=== PATIENT | male | born 1975 | race Caucasian/White ===

== ENCOUNTER → 2017-01-24 | Outpatient (CLI) | payer BC ==
--- NOTE | 2017-01-24 15:20 | XR ---
EXAMINATION TYPE: XR chest 2V DATE OF EXAM: 01/24/2017 2:46 PM COMPARISON: 11/03/2013 INDICATION: Physical exam annual TECHNIQUE: Frontal and lateral views of the chest are obtained. FINDINGS: The heart size is normal. The pulmonary vasculature is normal. The lungs are clear. IMPRESSION: 1. No acute pulmonary process.
== END | disposition home or self-care (01) ==
LOC: RADXRMAIN 14:33
PROVIDERS: ATTEND Family Medicine
DX: Z00.00 Encounter for general adult medical examination without abnormal findings (principal)
CPT/HCPCS: 71020

== ENCOUNTER → 2017-03-28 | Outpatient (CLI) | payer BC ==
--- NOTE | 2017-03-28 13:36 | CONS ---
DATE OF CONSULTATION: 03/28/2017 A 41-year-old gentleman who has [facility] for obstructive sleep-apnea hypopnea syndrome. HISTORY OF PRESENT ILLNESS/SLEEP-WAKE EVALUATION: Patient had been diagnosed with sleep apnea about 4 years ago. At that time was started on treatment with CPAP and patient continued to use his CPAP at the present time. When he started to use CPAP he felt better but presently he again developed sleepiness and awakenings from sleep. SLEEP SCHEDULE: His sleep schedule from around 10 p.m. to 5:30 a.m. when working days and from about 11 p.m. to 7 to 8 a.m. on weekend. FALLING ASLEEP: No problem with falling asleep at all. No TV in bedroom. DURING SLEEP: He usually sleeps on back and side position. Wake up from sleep 2 times. DURING THE DAY/WAKE STATE: In the morning he feels tired and sleepy. [place]- Sleepiness scale significantly increased to 14. He even feels sleepiness while driving. He has difficulties to pay attention probably with memory, concentration and depression and anxiety. Positive history of hypnagogical hallucinations. No history of sleep paralysis. No history of cataplexy. PAST MEDICAL HISTORY: Positive for migraine, neck and back problems. Restriction of nasal breathing. PAST SURGICAL HISTORY: Surgery for fracture of left clavicle in 1997. MEDICATIONS: Excedrin. SOCIAL HISTORY: Positive for smoking about 1 pack a day on and off for a total of 25 years. Alcohol consumption presently none. FAMILY HISTORY: Arthritis, lung problems, snoring, cancer, liver problems, mental illness. DURING PHYSICAL EXAM: GENERAL: gentleman without distress. VITAL SIGNS: BP 135/78, HR 74, RR16, height 5, 9, weight 232, BMI 34, neck 17 inches in circumference, temp 98.3, oxygen saturation 97% OROPHARYNX: Moderately low position of soft palpate with short distance between soft palate and posterior pharyngeal wall. Nasal septum deviation with stricture of nasal breathing. Mandible deviated to the left. ABDOMEN: Obese. NECK: Supple, No JVD. Thyroid is not palpable. LUNGS: Clear to percussion and to auscultation. Good air exchange. No wheezing or rhonchi. HEART: S1, s2 regular. No murmurs, gallops or rubs. EXTREMITIES: No clubbing or cyanosis. CHEMICAL MANAGER: Awake, alert, and oriented x3. Cranial nerves 2 to 7 intact. There is no fasciculation or atrophy noted. No focal deficits observed. IMPRESSION: 1. History of obstructive sleep apnea-hypopnea syndrome. Patient is on treatment with CPAP, presently developed significantly daytime sleepiness, [place] sleepiness increased to 14. Patient feels sleepy in situation including driving. Big neck, awakenings from sleep. 2. Obesity, body mass index 34. 3. Migraines. 4. Neck problem. 5. Back problem. 6. Status post surgical fracture of left clavicular fracture 1997. 7. Mandible deviated to the left. 8. Nasal septum deviation revealed restriction of nasal breathing. 9. Positive history of hypnagogical hallucinations. Differential diagnosis may include hypersomnia. PLAN: 1. CPAP titration for reevaluation of effective CPAP pressure at the present time. 2. Loosing weight. 3. Sleep hygiene with regular time in bed for at least 8 hours. 4. No driving if feeling any sleepiness. 5. Smoking cessation program. Thank you very much for allowing me to participate in the management of your patient. Sincerely, Channing Diaz MD, PhD, FAASM. Diplomat of [place] [employer], Sleep Medicine Board by [place] [employer] Machine Operator of [facility] [place] [facility]
== END | disposition home or self-care (01) ==
LOC: SLEEP 10:38
PROVIDERS: ATTEND Internal Medicine
DX: E66.9 Obesity, unspecified (principal); G43.909 Migraine, unspecified, not intractable, without status migrainosus; J34.2 Deviated nasal septum; Z68.34 Body mass index [BMI] 34.0-34.9, adult
CPT/HCPCS: 99211

== ENCOUNTER → 2018-06-06 | Outpatient (CLI) | payer BC ==
[2018-06-06 10:49] LABS: HCT 45.8 % (39.0-53.0); HGB 14.8 gm/dL (13.0-17.5); MCH 28.8 pg (25.0-35.0); MCHC 32.3 g/dL (31.0-37.0); MCV 89.1 fL (80.0-100.0); Mean Platelet Volume 6.5; Platelet Count 221 k/uL (150-450); RBC 5.14 m/uL (4.30-5.90); WBC 5.4 k/uL (3.8-10.6)
[2018-06-06 12:02] LABS: ALT 52 U/L (21-72); AST 39 U/L (17-59); Alkaline Phosphatase 47 U/L (38-126); Anion Gap 8 mmol/L; Blood Urea Nitrogen 17 mg/dL (9-20); Calcium 9.3 mg/dL (8.4-10.2); Carbon Dioxide 26 mmol/L (22-30); Chloride 106 mmol/L (98-107); Cholesterol 160 mg/dL (<200); Glucose 85 mg/dL (74-99); HDL Cholesterol 44 mg/dL (40-60); LDL Cholesterol,Calculated 98 mg/dL (0-99); Potassium 4.4 mmol/L (3.5-5.1); Sodium 140 mmol/L (137-145); Total Bilirubin 1.1 mg/dL (0.2-1.3); Total Protein 7.2 g/dL (6.3-8.2); Triglycerides 88 mg/dL (<150)
[2018-06-06 12:22] LABS: Prostate Specific Antigen 0.78 ng/mL (0.00-4.00)
== END ==
LOC: LABWHC1 09:53
PROVIDERS: ATTEND Family Medicine
DX: Z00.00 Encounter for general adult medical examination without abnormal findings (principal); E29.1 Testicular hypofunction; G47.31 Primary central sleep apnea
CPT/HCPCS: 36415; 80053; 80061; 82728; 84146; 84153; 84402; 84443; 84481; 85027

== ENCOUNTER → 2019-10-31 | Outpatient (CLI) | payer BC ==
--- NOTE | 2019-10-31 08:06 | CT ---
EXAMINATION TYPE: CT angio chest DATE OF EXAM: 10/31/2019 7:42 AM COMPARISON: None. HISTORY: ascending aorta dilation CT DLP: 944 mGycm Automated exposure control for dose reduction was used. CONTRAST: CTA scan of the thorax is performed without and with IV Contrast, patient injected with 100 mL of Iso rhett 370, pulmonary embolism protocol. . FINDINGS: There is minimal dependent atelectasis at the lung bases. Lungs are otherwise clear. No significant axillary, mediastinal or hilar adenopathy. There is no evidence of pulmonary embolus. The aortic root is minimally dilated measuring 3.8 cm. The proximal arch is minimally ectatic measuri ng 3 cm. The remainder of the aorta is normal in caliber. There is no pleural or pericardial fluid. The heart is not enlarged. Visualized upper abdominal structures are normal. There is minimal degenerative change within the spine. IMPRESSION: MINIMAL DILATATION OF THE AORTIC ROOT AND PROXIMAL ARCH.
== END | disposition home or self-care (01) ==
LOC: RADCTMAIN 07:06
PROVIDERS: ATTEND Internal Medicine Cardiovascular Disease
DX: I77.810 Thoracic aortic ectasia (principal)
CPT/HCPCS: 71275; Q9967

== ENCOUNTER → 2022-01-17 | Outpatient (CLI) | payer BC ==
--- NOTE | 2022-02-02 18:37 | P.CEMON ---
14 Day Event monitor note: Patient wore an event monitor for 14 days from 01/17/2022 until 01/30/2022. Findings: Patient's baseline heart rate was normal sinus rhythm. There were no signficant atrial fibrillation, atrial flutter, or ventricular tachycardia episodes. There were no significant pauses greater than 2 seconds. There were a total of 141 automatically captured events and patient activated events. Patient activated events of symptoms of shortness breath, chest pressure, tightness and not specified corresponded sometimes with sinus rhythm and occasionally with PACs. There were additional rare PACs. There was occasional sinus tachycardia. There is no atrial fibrillation. Conclusions: 14 day event monitor with sinus rhythm and frequent PACs and PVCs. Patient's activated events corresponding with sinus rhythm and occasionally with PACs and PVCs. No atrial fibrillation noted, no ventricular tachycardia, no positive is greater than 2 seconds.
== END | disposition home or self-care (01) ==
LOC: RADECHMAIN 08:11
PROVIDERS: ATTEND Family Medicine
DX: I49.3 Ventricular premature depolarization (principal); I49.1 Atrial premature depolarization
CPT/HCPCS: 93270

== ENCOUNTER → 2022-06-29 | Outpatient (CLI) | payer OTHER ==
--- NOTE | 2022-06-29 16:26 | XR ---
EXAMINATION TYPE: XR lumbar spine 2 or 3V DATE OF EXAM: 06/29/2022 4:22 PM INDICATION: Patient age:Male; 46 years old; Reason for study: S73.102A, R20.9; slipped, fall pain. COMPARISON: TECHNIQUE: Frontal, lateral and coned in L5-S1 lateral views of the spine. FINDINGS: No evidence of any acute osseous pathology. No evidence of loss of vertebral body height i s seen. There is normal alignment of the lumbar vertebral bodies. Mild scattered disc space narrowing . Multilevel marginal osteophyte formation throughout the visualized spine. There is facet joint arth ropathy throughout the spine. Scattered at least mild neural foraminal stenosis. IMPRESSION: 1. No acute fracture. 2. Mild multilevel disc degeneration.
--- NOTE | 2022-06-29 16:27 | XR ---
EXAMINATION TYPE: XR Hip Complete LT DATE OF EXAM: 06/29/2022 4:22 PM INDICATION: Patient age:Male; 46 years old; Reason for study: S73.102A, R20.9; . COMPARISON: None. TECHNIQUE: The left hip was examined in the frontal and lateral projections FINDINGS: No evidence for acute process, joint dislocation or significant soft tissue swelling. IMPRESSION: No acute process.
--- NOTE | 2022-06-29 16:27 | XR ---
EXAMINATION TYPE: XR pelvis AP view DATE OF EXAM: 06/29/2022 4:22 PM INDICATION: Patient age:Male; 46 years old; Reason for study: S73.102A, R20.9; COMPARISON: Same day left hip radiograph. TECHNIQUE: The pelvis was examined in a single projection. FINDINGS: There is no evidence of fracture or dislocation. There is no soft tissue abnormality. No a bnormal calcifications are present. Multilevel degenerative changes of the lower spine. IMPRESSION: No acute osseous pathology.
== END | disposition home or self-care (01) ==
LOC: RADXRMAIN 15:55
PROVIDERS: ATTEND Emergency Medicine
DX: S73.102A Unspecified sprain of left hip, initial encounter (principal); M51.36 Other intervertebral disc degeneration, lumbar region; R20.9 Unspecified disturbances of skin sensation
CPT/HCPCS: 72100; 72170; 73502

== ENCOUNTER 2022-10-09 02:06 | Emergency (ER) | payer BC ==
[2022-10-09 03:50] LABS: Basophils # (A) 0.1 k/uL (0-0.2); Basophils % (A) 1 %; Eosinophils # (A) 0.2 k/uL (0-0.7); Eosinophils % (A) 2 %; HCT 51.4 % (39.0-53.0); HGB 17.5 gm/dL (13.0-17.5); Lymphocytes # (A) 0.8 k/uL (1.0-4.8); Lymphocytes % (A) 6 %; MCH 31.6 pg (25.0-35.0); MCV 92.8 fL (80.0-100.0); Mean Platelet Volume 6.9; Monocytes # (A) 0.6 k/uL (0-1.0); Monocytes % (A) 5 %; Neutrophils # (A) 10.8 k/uL (1.3-7.7); Neutrophils % (A) 86 %; Platelet Count 189 k/uL (150-450); RBC 5.53 m/uL (4.30-5.90); RDW 12.7 % (11.5-15.5); WBC 12.6 k/uL (3.8-10.6)
--- NOTE | 2022-10-09 03:53 | XR ---
EXAMINATION TYPE: XR KUB DATE OF EXAM: 10/09/2022 COMPARISON: NONE HISTORY: Abdominal pain TECHNIQUE: 2 views upright FINDINGS: There is no sign of intestinal obstruction or pneumoperitoneum. Fecal pattern is normal. No evidence of a mass. No pathologic calcification over the kidneys. Bony structures are intact. IMPRESSION: Nonacute abdomen.
[2022-10-09 04:22] LABS: ALT 124 U/L (4-49); AST 57 U/L (17-59); African American GFR (CKD) >90 (>60 ml/min/1.73 sqM); Albumin 4.2 g/dL (3.5-5.0); Alkaline Phosphatase 65 U/L (38-126); Amylase 166 U/L (30-110); Anion Gap 13 mmol/L; Blood Urea Nitrogen 21 mg/dL (9-20); Calcium 8.3 mg/dL (8.4-10.2); Carbon Dioxide 27 mmol/L (22-30); Chloride 102 mmol/L (98-107); Glucose 121 mg/dL (74-99); Lipase 777 U/L (23-300); Non-African American GFR(CKD) 79 (>60 ml/min/1.73 sqM); Potassium 3.7 mmol/L (3.5-5.1); Sodium 142 mmol/L (137-145); Total Bilirubin 0.8 mg/dL (0.2-1.3); Total Protein 7.5 g/dL (6.3-8.2)
[2022-10-09] MEDS ORDERED: ONDANSETRON 4 MG/2 ML VIAL IVP STA (04:40)
--- NOTE | 2022-10-09 04:40 | ED ---
Abdominal Pain HPI - General Chief Complaint: Abdominal Pain Stated Complaint: abd pain chills nausea Time Seen by Provider: 10/09/22 03:33 Source: patient Mode of arrival: ambulatory - Related Data Allergies Allergy/AdvReac Type Severity Reaction Status Date / Time amoxicillin Allergy Vomiting Verified 10/09/22 02:18 Review of Systems ROS Statement: Those systems with pertinent positive or pertinent negative responses have been documented in the HPI. ROS Other: All systems not noted in ROS Statement are negative. Past Medical History Past Medical History: No Reported History History of Any Multi-Drug Resistant Organisms: None Reported Past Surgical History: No Surgical Hx Reported, Orthopedic Surgery Past Psychological History: No Psychological Hx Reported Past Alcohol Use History: Daily Past Drug Use History: None Reported Course Vital Signs 10/09/22 10/09/22 10/09/22 02:14 03:40 06:00 Temperature 98.7 F 98.4 F 98.8 F Pulse Rate 115 H 96 110 H Respiratory 18 18 16 Rate Blood Pressure 116/87 141/82 131/94 O2 Sat by Pulse 95 95 95 Oximetry Medical Decision Making - Lab Data Result diagrams: 10/09/22 03:39 10/09/22 03:39 Lab Results 10/09/22 10/09/22 Range/Units 03:39 03:39 WBC 12.6 H (3.8-10.6) k/uL RBC 5.53 (4.30-5.90) m/uL Hgb 17.5 (13.0-17.5) gm/dL Hct 51.4 (39.0-53.0) % MCV 92.8 (80.0-100.0) fL MCH 31.6 (25.0-35.0) pg MCHC 34.0 (31.0-37.0) g/dL RDW 12.7 (11.5-15.5) % Plt Count 189 (150-450) k/uL MPV 6.9 Neutrophils % 86 % Lymphocytes % 6 % Monocytes % 5 % Eosinophils % 2 % Basophils % 1 % Neutrophils # 10.8 H (1.3-7.7) k/uL Lymphocytes # 0.8 L (1.0-4.8) k/uL Monocytes # 0.6 (0-1.0) k/uL Eosinophils # 0.2 (0-0.7) k/uL Basophils # 0.1 (0-0.2) k/uL Sodium 142 (137-145) mmol/L Potassium 3.7 (3.5-5.1) mmol/L Chloride 102 (98-107) mmol/L Carbon Dioxide 27 (22-30) mmol/L Anion Gap 13 mmol/L BUN 21 H (9-20) mg/dL Creatinine 1.10 (0.66-1.25) mg/dL Est GFR (CKD-EPI)AfAm >90 (>60 ml/min/1.73 sqM) Est GFR (CKD-EPI)NonAf 79 (>60 ml/min/1.73 sqM) Glucose 121 H (74-99) mg/dL Calcium 8.3 L (8.4-10.2) mg/dL Total Bilirubin 0.8 (0.2-1.3) mg/dL AST 57 (17-59) U/L ALT 124 H (4-49) U/L Alkaline Phosphatase 65 (38-126) U/L Total Protein 7.5 (6.3-8.2) g/dL Albumin 4.2 (3.5-5.0) g/dL Amylase 166 H (30-110) U/L Lipase 777 H (23-300) U/L Disposition Clinical Impression: Abdominal pain, Pancreatitis Disposition: HOME SELF-CARE Condition: Good Instructions (If sedation given, give patient instructions): Abdominal Pain (ED) Is patient prescribed a controlled substance at d/c from ED?: No Referrals: Levi Elder DO [Primary Care Provider] - 1-2 days Time of Disposition: 06:50
[2022-10-09 06:12] VITALS: BP 131/94; PULSE 110; RESP 16; TEMP 98.8
[2022-10-09] MEDS ORDERED: ACET/COD 300 MG/30 MG STARTER PACK 6 TAB BTL PO STA (06:46)
[2022-10-09] MEDS ORDERED: traMADol 50 MG STARTER PACK 3 TAB BTL PO STA (06:46)
[2022-10-09] MEDS ORDERED: ONDANSETRON 4 MG ODT STARTER PACK 2 TAB BTL PO STA (06:46)
== END 2022-10-09 07:08 | disposition home or self-care (01) ==
LOC: EC 02:06
DX: K85.90 Acute pancreatitis without necrosis or infection, unspecified (principal); Z88.0 Allergy status to penicillin
CPT/HCPCS: 36415; 93005; 80053; 82150; 83690; 85025; 74018; 99284; 96374; J2405; S0119

== ENCOUNTER → 2025-03-13 | Outpatient (CLI) | payer BC ==
[2025-03-14 01:13] LABS: ALT 36 U/L (10-49); AST 27 U/L (14-35); Albumin 4.3 g/dL (3.8-4.9); Albumin/Globulin Ratio 1.59 Ratio (1.60-3.17); Alkaline Phosphatase 56 U/L (41-126); Anion Gap 12.60 mmol/L (4.00-12.00); BUN/Creat Ratio 17.10 Ratio (12.00-20.00); Blood Urea Nitrogen 17.1 mg/dL (9.0-27.0); Calcium 9.5 mg/dL (8.7-10.3); Carbon Dioxide 25.4 mmol/L (21.6-31.8); Chloride 103 mmol/L (96-109); Cholesterol 205.00 mg/dL (0.00-200.00); Globulin 2.7 g/dL (1.6-3.3); Glucose 87 mg/dL (70-110); HDL Cholesterol 51.00 mg/dL (40.00-60.00); LDL Cholesterol,Calculated 124.6 mg/dL (0.0-131.0); Potassium 4.2 mmol/L (3.5-5.5); Sodium 141 mmol/L (135-145); T4, Free (Free Thyroxine) 1.11 ng/dL (0.80-1.80); Total Protein 7.0 g/dL (6.2-8.2); Triglycerides 147.00 mg/dL (0.00-149.00); VLDL Calculation 29.40 mg/dL (5.00-40.00)
[2025-03-14 09:14] LABS: Basophils # (A) 0.08 X 10*3/uL (0.00-0.10); Basophils % (A) 1.2 %; Eosinophils # (A) 0.34 X 10*3/uL (0.04-0.35); Eosinophils % (A) 5.2 %; HCT 45.6 % (39.6-50.0); HGB 15.2 g/dL (13.0-17.0); Immature Grans, Automated 0.30 %; Lymphocytes # (A) 1.76 X 10*3/uL (0.90-5.00); Lymphocytes % (A) 26.7 %; MCH 30.3 pg (27.0-32.0); MCHC 33.3 g/dL (32.0-37.0); MCV 91.0 FL (80.0-97.0); Monocytes # (A) 0.87 X 10*3/uL (0.20-1.00); Monocytes % (A) 13.2 %; NRBC Per 100 WBC 0 X 10*3/uL (0.00-0.01); Neutrophils # (A) 3.52 X 10*3/uL (1.80-7.70); Neutrophils % (A) 53.4 %; Platelet Count 208 X 10*3/uL (140-440); RBC 5.01 X 10*6/uL (4.40-5.60); RDW 12.3 % (11.5-14.5); WBC 6.59 X 10*3/uL (4.50-10.00)
== END | disposition home or self-care (01) ==
LOC: LABWHC1 09:53
PROVIDERS: ATTEND Student in an Organized Health Care Education/Training Program
DX: Z00.00 Encounter for general adult medical examination without abnormal findings (principal); Z13.228 Encounter for screening for other metabolic disorders
CPT/HCPCS: 36415; 80053; 80061; 84403; 84439; 84443; 85025